=== PATIENT | female | born 1975 ===

== ENCOUNTER 2020-05-14 05:13 | Day surgery (SDC) | payer OTHER ==
[2020-05-10 11:49] VITALS: BMI 32.1
[2020-05-14] MEDS ORDERED: MIDAZOLAM HCL 2 MG/2 ML SINGLE DOSE VIAL ONE (09:32)
--- NOTE | 2020-05-14 09:40 | OP ---
Operative Note - Note: Operative Date: 05/14/20 Pre-Operative Diagnosis: Left ureteral stone Findings: 5 mm du stone Anesthesia: MAC Operative Report Dictated: Yes
[2020-05-14] MEDS ORDERED: ELECTROLYTE-148 SOLN 1,000 ML IV SCH (09:45)
[2020-05-14] MEDS ORDERED: ceFAZolin SODIUM 1 GM VIAL IVPB ONE (10:00)
[2020-05-14] MEDS ORDERED: KETOROLAC TROMETHAMINE 30 MG/1 ML VIAL ONE (10:27)
[2020-05-14] MEDS ORDERED: ceFAZolin SODIUM 1 GM VIAL ONE (10:27)
--- NOTE | 2020-05-14 10:50 | OP ---
DATE OF OPERATION: 05/14/2020 PREOPERATIVE DIAGNOSIS: Left ureteral calculus. POSTOPERATIVE DIAGNOSIS: Left ureteral calculus. PROCEDURE: Left extracorporeal shockwave lithotripsy. INDICATIONS: This is a very pleasant 44-year-old female with a history of left flan pain who has left hydronephrosis with a 5-mm distal ureteral stone on CAT scan. After discussing treatment options, the patient elects to undergo the above stated procedure. The risks and benefits of treatment and alternative treatments discussed in detail. All questions were answered. DETAILS OF PROCEDURE: The patient was brought to the operating room and placed in the supine position. Once sedation was administered, the patient remained in the supine position and the stone was localized using 3D fluoroscopy. Approximately 2500 shocks were delivered. The patient tolerated the procedure well and was brought to the recovery room in stable and satisfactory condition. Alok [id number]
[2020-05-14 11:25] VITALS: BP 116/73; PULSE 60; TEMP 96.4
== END 2020-05-14 11:45 | disposition home or self-care (01) ==
LOC: JASU-SURG 05:13
PROVIDERS: ATTEND Urology
PROC: 0TF7XZZ Fragmentation in Left Ureter, External Approach (ICD-10-PCS; principal; 2020-05-14 09:00)
DX: N20.1 Calculus of ureter (principal)
CPT/HCPCS: 84703